=== PATIENT | male | born 1990 | race American Indian/Alaskan Native ===

== ENCOUNTER 2018-09-17 17:14 | Emergency (ER) | payer SELFPAY ==
--- NOTE | 2018-09-17 17:23 | Emergency Department Report ---
Blank Doc - Documentation Documentation: pt presents for SOB that began today states it hurts to take deep breath no CP never had before states he drove 8 hours today no LE edema no PMHx no family hx of DVT/PE +marijuana +cocaine, last used 4-5 days ago +smoker +ETOH
[2018-09-17 17:44] LABS: Basophils % (Auto) 0.3 % (0.0-1.8); Eosinophils # (Auto) 0.1 K/mm3 (0.0-0.4); Eosinophils % (Auto) 0.8 % (0.0-4.3); Hematocrit 49.9 % (35.5-45.6); Hemoglobin 16.7 gm/dl (11.8-15.2); Lymphocytes # (Auto) 2.3 K/mm3 (1.2-5.4); Lymphocytes % (Auto) 19.6 % (13.4-35.0); Mean Corpuscular HGB Conc 34 % (32-34); Mean Corpuscular Volume 86 fl (84-94); Monocytes % (Auto) 8.4 % (0.0-7.3); Platelet Count 299 K/mm3 (140-440); Red Blood Count 5.79 M/mm3 (3.65-5.03); Red Cell Distribution Width 13.6 % (13.2-15.2)
[2018-09-17 18:02] LABS: Alanine Aminotransferase 42 units/L (7-56); Albumin 4.7 g/dL (3.9-5); BUN/Creatinine Ratio 8; Blood Urea Nitrogen 8 mg/dL (9-20); Calcium 9.3 mg/dL (8.4-10.2); Hemolysis Index 10
--- NOTE | 2018-09-17 18:17 | XRay Report ---
PROCEDURE: XR CHEST ROUTINE 2V TECHNIQUE: PA and lateral chest radiographs were obtained. HISTORY: SOB COMPARISONS: None. FINDINGS: Heart: Normal. Mediastinum/Vessels: Normal. Lungs/Pleural space: Normal. Bony thorax: No acute osseous abnormality. IMPRESSION: No focal consolidation or effusion. This document is electronically signed by José Seo MD., Sep 17 2018 06:15:45 PM ET
--- NOTE | 2018-09-17 21:07 | Emergency Department Report ---
ED Psych HPI - General Chief Complaint: Dyspnea/Respdistress Stated Complaint: SOB Time Seen by Provider: 09/17/18 17:20 Source: patient Mode of arrival: Ambulatory - History of Present Illness Initial Comments: CC: "I need help." HPI: Mr. Hernandez is a 27 yo male with hx of marijuana and cocaine abuse who presents to ED for detox/rehab referral. He admits to depression since his fiancee left him 3-4 months ago. At that time, he also lost his job and home. He denies SI/HI. He has had chest pain for the past 2 years. No chest pain at this time. He has left sided chest pain intermittent which he has ignored. Denies leg pain or shortness of breath. His last use of cocaine occurred on Wednesday MD Complaint: feels depressed, other (polysubstance abuse) -: month(s) (several months) Quality: constant, getting worse Worsens With: drug use Context: recent drug abuse, significant life stressor Associated Symptoms: shortness of breath, other (chest pain) Treatments Prior to Arrival: none - Related Data Allergies Allergy/AdvReac Type Severity Reaction Status Date / Time No Known Allergies Allergy Unverified 09/17/18 17:15 ED Review of Systems ROS: Stated complaint: SOB Other details as noted in HPI Comment: All other systems reviewed and negative Constitutional: denies: fever, malaise Respiratory: shortness of breath Cardiovascular: denies: chest pain ED Past Medical Hx - Past Medical History Previous Medical History?: No - Surgical History Past Surgical History?: No - Family History Family history: other (no known history of mental illness or drug abuse in the family) - Social History Smoking Status: Current Every Day Smoker Substance Use Type: Alcohol, Cocaine, Marijuana ED Physical Exam - General Limitations: No Limitations General appearance: alert, in no apparent distress, other (calm pleasant insightful) - Head Head exam: Present: atraumatic, normocephalic - Eye Eye exam: Present: normal appearance. Absent: scleral icterus, conjunctival injection - ENT ENT exam: Present: mucous membranes moist - Neck Neck exam: Present: normal inspection, full ROM - Respiratory Respiratory exam: Present: normal lung sounds bilaterally. Absent: respiratory distress, wheezes, rales, rhonchi - Cardiovascular Cardiovascular Exam: Present: regular rate, normal rhythm, normal heart sounds. Absent: systolic murmur, diastolic murmur, rubs, gallop - GI/Abdominal GI/Abdominal exam: Present: soft, normal bowel sounds. Absent: distended, tenderness, guarding, rebound - Extremities Exam Extremities exam: Present: normal inspection - Back Exam Back exam: Present: normal inspection - Neurological Exam Neurological exam: Present: alert, oriented X3 - Psychiatric Psychiatric exam: Present: normal affect, depressed, other (talkative, pleasant articulate) - Skin Skin exam: Present: warm, dry, intact, normal color. Absent: rash ED Course Vital Signs 09/17/18 09/17/18 09/17/18 17:21 20:06 20:15 Temperature 98.1 F Pulse Rate 112 H 67 Respiratory 20 15 Rate Blood Pressure 172/91 159/94 O2 Sat by Pulse 100 99 100 Oximetry 09/17/18 09/17/18 09/17/18 20:17 20:31 20:45 Temperature Pulse Rate 64 66 Respiratory 20 18 22 Rate Blood Pressure 159/94 159/94 O2 Sat by Pulse 98 100 100 Oximetry ED Medical Decision Making - Lab Data Result diagrams: 09/17/18 17:35 09/17/18 17:35 Laboratory Results - last 24 hr 09/17/18 09/17/18 09/17/18 17:35 17:35 17:35 WBC 11.7 H RBC 5.79 H Hgb 16.7 H Hct 49.9 H MCV 86 MCH 29 MCHC 34 RDW 13.6 Plt Count 299 Lymph % (Auto) 19.6 [place] % (Auto) 8.4 H Eos % (Auto) 0.8 Baso % (Auto) 0.3 Lymph # 2.3 [place] # 1.0 H Eos # 0.1 Baso # 0.0 Seg Neutrophils % 70.9 H Seg Neutrophils # 8.3 H D-Dimer < 135.00 Sodium 137 Potassium 4.5 Chloride 98.2 Carbon Dioxide 24 Anion Gap 19 BUN 8 L Creatinine 1.0 Estimated GFR > 60 BUN/Creatinine Ratio 8 Glucose 118 H Calcium 9.3 Total Bilirubin 1.50 H AST 21 ALT 42 Alkaline Phosphatase 53 Total Protein 7.8 Albumin 4.7 Albumin/Globulin Ratio 1.5 - EKG Data 09/17/18 21:30 EKG 2125 Sinus arrhythmia rate 85 beats normal axis normal intervals no significant ST elevation biphasic T waves in the inferior leads - Radiology Data Radiology results: report reviewed Chest x-ray no acute process according to radiology report - Medical Decision Making Mr. Hernandez presnts with depression and polysubstance abuse. He desires rehab and "someone to talk to". He has had intermittent chest pain over the past 2 years. None currently. Normal d-dimer level. Mr. Martins desired to obtain outpatient resources for rehabilitation. He is currently pain-free. He does not have any thoughts of self-harm or harm to others. He is quite insightful. I have provided outpatient referrals. He is discharged home in stable condition. Critical care attestation.: If time is entered above; I have spent that time in minutes in the direct care of this critically ill patient, excluding procedure time. ED Disposition Clinical Impression: Polysubstance abuse, Depression, Chest pain Disposition: DC- TO HOME OR SELFCARE Is pt being admited?: No Does the pt Need Aspirin: No Condition: Stable Instructions: Chest Pain (ED), Polysubstance Abuse (ED), Depression (ED) [facility] [Outside] - 3-5 Days
[2018-09-17 22:54] VITALS: BP 142/86
== END 2018-09-17 22:52 | disposition home or self-care (01) ==
LOC: ED 17:14
DX: F32.9 Major depressive disorder, single episode, unspecified (principal); F19.10 Other psychoactive substance abuse, uncomplicated; R07.89 Other chest pain; F17.200 Nicotine dependence, unspecified, uncomplicated; F14.10 Cocaine abuse, uncomplicated; F12.10 Cannabis abuse, uncomplicated
CPT/HCPCS: 36415; 71046; 80053; 85025; 85379; 93005; 93010